=== PATIENT | male | born 1960 | race Caucasian/White ===

== ENCOUNTER 2024-10-17 06:33 | Emergency (ER) | payer MEDICARE, MEDICAID ==
[~2024-10-17] VITALS: Ht 180.3 cm; Wt 100.0 kg
[2024-10-17 06:53] VITALS: O2SAT 100
[2024-10-17] MEDS ORDERED: LIDOCAINE HCL/EPINEPHRINE 1%-EPI 1:100,000 10ML VIAL INFIL ONE (07:15)
[2024-10-17] MEDS: HYDROCODONE/ACETAMINOPHEN 10/325MG TABLET PO ONE (07:58)
[2024-10-17] MEDS: TETANUS, DIPHTHERIA, PERTUSSIS VAC/PF 0.5ML (>10YR OLD) IM ONE (08:00)
[2024-10-17] MEDS: LIDOCAINE HCL/EPINEPHRINE 1%-EPI 1:100,000 10ML VIAL INFIL NR (13:36)
[2024-10-17 14:50] VITALS: BP 145/91; PULSE 87; RESP 16; TEMP 36.6; O2SAT 100
== END 2024-10-17 14:51 | disposition home or self-care (01) ==
LOC: ER 06:33
DX: S81.812A Laceration without foreign body, left lower leg, initial encounter (principal); M25.561 Pain in right knee; I48.91 Unspecified atrial fibrillation; Z79.01 Long term (current) use of anticoagulants; Z86.718 Personal history of other venous thrombosis and embolism; Z86.73 Personal history of transient ischemic attack (TIA), and cerebral infarction without residual deficits; Z88.0 Allergy status to penicillin; Z95.0 Presence of cardiac pacemaker; W22.03XA Walked into furniture, initial encounter; Y93.89 Activity, other specified; Y92.89 Other specified places as the place of occurrence of the external cause; Y99.8 Other external cause status
CPT/HCPCS: 73560; 73590; 90715; 96372; 99285

== ENCOUNTER 2024-10-24 15:33 | Inpatient (IN) | payer BC, MEDICAID ==
[~2024-10-24] VITALS: Ht 177.8 cm; Wt 94.3 kg
[2024-10-24] MEDS ORDERED: ONDANSETRON HCL 4MG/2ML INJ IV STA (16:13)
[2024-10-24] MEDS ORDERED: MORPHINE SULFATE 4 MG/ML INJ (FOR IV/IM USE) IV STA (16:13)
[2024-10-24] MEDS ORDERED: CEFEPIME 2GM IN DEXT 5% 100ML IV ONE (16:15)
[2024-10-24 18:26] LABS: BASOPHILS % 0.4 % (0.0-2.0); DIFFERENTIAL COMMENT 0; EOSINOPHILS % 2.3 % (0.0-5.0); HEMATOCRIT. 22.7 % (42.0-52.0); HEMOGLOBIN. 7.6 g/dL (14.0-18.0); LYMPHOCYTES % 9.7 % (20.0-50.0); MEAN CORPUSCULAR HEMOGLOBIN 33.5 pg (28.0-32.0); MEAN CORPUSCULAR HGB CONC 33.2 g/dL (31.0-37.0); MEAN CORPUSCULAR VOLUME 100.8 fL (80.0-94.0); MEAN PLATELET VOLUME 9.2 fl (7.4-10.4); MONOCYTES % 9.9 % (2.0-8.0); NEUTROPHILS % 77.7 % (40.0-76.0); PLATELET 105 x1000/uL (130-400); RED BLOOD CELL COUNT 2.25 mill/uL (4.7-6.1); RED CELL DISTRIBUTION WIDTH 15.1 % (11.6-14.6); WHITE BLOOD COUNT 4.5 x1000/uL (4.5-11.0)
[2024-10-24 18:38] LABS: CHLORIDE 108 mEq/L (98-107); SODIUM 141 mEq/L (136-145)
[2024-10-24 18:39] LABS: CALCIUM 8.8 mg/dL (8.7-10.4); CARBON DIOXIDE 27 mEq/L (21-32)
[2024-10-24 18:44] LABS: CREATININE 0.6 mg/dL (0.6-1.3); GLUCOSE 85 mg/dL (70-105); TROPONIN I HIGH SENSITIVITY 5 ng/L (3.0-53); UREA NITROGEN BLOOD 11 mg/dL (9-23)
[2024-10-24 18:46] LABS: ALANINE AMINOTRANSFERASE 16 IU/L (10-49); ALBUMIN 3.5 g/dL (3.2-4.8); ASPARTATE AMINOTRANSFERASE 21 IU/L (<34); BILIRUBIN TOTAL 0.5 mg/dL (0.1-1.0); PROTEIN TOTAL 6.3 g/dL (6.0-8.3)
[2024-10-24] MEDS: ONDANSETRON HCL 4MG/2ML INJ IV NR (19:21)
[2024-10-24] MEDS: MORPHINE SULFATE 4 MG/ML INJ (FOR IV/IM USE) IV NR (19:21)
[2024-10-24] MEDS: CEFEPIME 2GM/50ML DUPLEX 50 ML IV NR (19:21)
[2024-10-24] MEDS: VANCOMYCIN 1G PREMIX 200 ML IV SCH (19:22)
[2024-10-24 21:58] LABS: CLARITY URINE CLEAR (CLEAR); COLOR URINE YELLOW (YELLOW); GLUCOSE URINE NEGATIVE (NEGATIVE); KETONES URINE NEGATIVE (NEGATIVE); LEUKOCYTE ESTERASE URINE NEGATIVE (NEGATIVE); NITRITE URINE NEGATIVE (NEGATIVE); OCCULT BLOOD URINE NEGATIVE (NEGATIVE); PH URINE 6.5 (4.5-8.0); PROTEIN URINE NEGATIVE (NEGATIVE); SPECIFIC GRAVITY URINE 1.009 (1.005-1.030); UROBILINOGEN URINE 0.2 E.U./dL (0.2-1.0)
[2024-10-24 22:05] VITALS: BP 120/70; PULSE 77; RESP 20; TEMP 36.4; O2SAT 96
[2024-10-24] MEDS ORDERED: NALOXONE HCL 0.4MG/ML VIAL IV PRN (23:30)
[2024-10-25] VITALS: BP 97/60; PULSE 70; RESP 18; TEMP 36.5; O2SAT 97
[2024-10-25] MEDS: HYDROCODONE/ACETAMINOPHEN 5/325MG TABLET PO PRN (01:59)
[2024-10-25 04:00] VITALS: BP 120/87; PULSE 78; RESP 18; TEMP 36.6; O2SAT 99
[2024-10-25] MEDS: MORPHINE SULFATE 2 MG/ML INJ (NOT FOR IM USE) IV NR (05:52)
[2024-10-25 07:03] LABS: BASOPHILS % 0.4 % (0.0-2.0); DIFFERENTIAL COMMENT 0; EOSINOPHILS % 3.1 % (0.0-5.0); HEMATOCRIT. 22.4 % (42.0-52.0); HEMOGLOBIN. 7.3 g/dL (14.0-18.0); LYMPHOCYTES % 13.2 % (20.0-50.0); MEAN CORPUSCULAR HGB CONC 32.8 g/dL (31.0-37.0); MEAN CORPUSCULAR VOLUME 100.6 fL (80.0-94.0); MEAN PLATELET VOLUME 9.7 fl (7.4-10.4); MONOCYTES % 11.1 % (2.0-8.0); NEUTROPHILS % 72.2 % (40.0-76.0); PLATELET 108 x1000/uL (130-400); RED BLOOD CELL COUNT 2.22 mill/uL (4.7-6.1); RED CELL DISTRIBUTION WIDTH 15.2 % (11.6-14.6); WHITE BLOOD COUNT 3.2 x1000/uL (4.5-11.0)
[2024-10-25] MEDS: IRON SUCROSE COMPLEX 100 MG/5 ML ML IV SCH (09:51)
[2024-10-25] MEDS ORDERED: ONDANSETRON HCL 4MG/2ML INJ IV PRN (11:30)
[2024-10-25] MEDS ORDERED: ACETAMINOPHEN 325MG TABLET PO PRN (11:30)
[2024-10-25] MEDS ORDERED: CEFEPIME 1GM IN DEXT 5% 50ML IV SCH (11:30)
[2024-10-25] MEDS ORDERED: ACET-2708 MT (11:38)
[2024-10-25] MEDS ORDERED: FLUT1BLS9 IH (11:38)
[2024-10-25] MEDS ORDERED: TUSSL MT (11:38)
[2024-10-25] MEDS ORDERED: AMLO5TAB88 MT (11:38)
[2024-10-25] MEDS ORDERED: CODE473S7 MT (11:38)
[2024-10-25] MEDS ORDERED: ALBU90AE INH (11:38)
[2024-10-25] MEDS ORDERED: FAMO40TA7 MT (11:38)
[2024-10-25] MEDS ORDERED: RIVA20TA MT (11:38)
[2024-10-25] MEDS ORDERED: TEMA30CA MT (11:38)
[2024-10-25] MEDS ORDERED: BO1 TP (11:38)
[2024-10-25] MEDS ORDERED: LORA-249 MT (11:38)
[2024-10-25] MEDS ORDERED: MONT-39 MT (11:38)
[2024-10-25] MEDS ORDERED: HYDR-4001 MT (11:38)
[2024-10-25] MEDS ORDERED: AZIT250T12 MT (11:38)
[2024-10-25] MEDS ORDERED: P20 MT (11:38)
[2024-10-25] MEDS ORDERED: FLUT15.844 BOTHNSTRLS (11:41)
[2024-10-25] MEDS ORDERED: KETO-98 LEFTEYE (11:43)
[2024-10-25 12:00] VITALS: BP 120/64; PULSE 82; RESP 16; TEMP 36.2; O2SAT 97
[2024-10-25] MEDS: CEFEPIME 1GM/50ML 50 ML IV SCH (12:45)
[2024-10-25] MEDS: ENOXAPARIN 80MG/0.8ML SYR SUBCUT NR (12:45)
[2024-10-25 16:00] VITALS: BP 140/80; PULSE 77; RESP 18; TEMP 36.4; O2SAT 100
[2024-10-25] MEDS ORDERED: VANCOMYCIN 1.25GM/250ML 250 ML IV SCH (16:00)
[2024-10-25] MEDS: VANCOMYCIN 1.25GM/250ML 250 ML IV SCH (16:46)
[2024-10-25] MEDS ORDERED: TEMAZEPAM MT PRN (18:15)
[2024-10-25] MEDS ORDERED: MEDICATION NOT ON FORMULARY EA (Ketotifen Fumarate 1 DROP) LEFTEYE SCH (18:15)
[2024-10-25] MEDS ORDERED: RIVAROXABAN 20 MG TABLET PO SCH (18:15)
[2024-10-25] MEDS ORDERED: MEDICATION NOT ON FORMULARY EA (Famotidine 1 TAB) MT SCH (18:15)
[2024-10-25] MEDS: AMLODIPINE 5MG TABLET PO SCH (19:20)
[2024-10-25] MEDS: MONTELUKAST SODIUM 10MG TABLET PO SCH (19:20)
[2024-10-25 20:00] VITALS: BP 116/62; PULSE 91; RESP 18; TEMP 36.3; O2SAT 18; O2SAT 96
[2024-10-25 20:55] LABS: INR 1.1; PROTHROMBIN TIME 11.4 sec (9.6-11.0)
[2024-10-25] MEDS: CEFEPIME 2GM/50ML DUPLEX 50 ML IV SCH (23:01)
[2024-10-26] VITALS (7 sets, daily range): BP systolic 137–161; BP diastolic 71–91; PULSE 76–100; RESP 13–20; TEMP 36–36.6; O2SAT 93–100
[2024-10-26] MEDS: ENOXAPARIN 80MG/0.8ML SYR SUBCUT SCH (01:26)
[2024-10-26 08:28] LABS: BASOPHILS % 0.4 % (0.0-2.0); CARBON DIOXIDE 29 mEq/L (21-32); CHLORIDE 107 mEq/L (98-107); HEMATOCRIT. 23.7 % (42.0-52.0); HEMOGLOBIN. 7.9 g/dL (14.0-18.0); LYMPHOCYTES % 10.2 % (20.0-50.0); MEAN CORPUSCULAR HEMOGLOBIN 33.3 pg (28.0-32.0); MEAN CORPUSCULAR HGB CONC 33.3 g/dL (31.0-37.0); MEAN CORPUSCULAR VOLUME 99.9 fL (80.0-94.0); MEAN PLATELET VOLUME 9.7 fl (7.4-10.4); MONOCYTES % 8.1 % (2.0-8.0); NEUTROPHILS % 78.3 % (40.0-76.0); PLATELET 122 x1000/uL (130-400); POTASSIUM 4.5 mEq/L (3.5-5.1); RED BLOOD CELL COUNT 2.37 mill/uL (4.7-6.1); SODIUM 140 mEq/L (136-145); WHITE BLOOD COUNT 4.2 x1000/uL (4.5-11.0)
[2024-10-26 08:33] LABS: CREATININE 0.5 mg/dL (0.6-1.3)
[2024-10-26 08:34] LABS: GLUCOSE 89 mg/dL (70-105); UREA NITROGEN BLOOD 9 mg/dL (9-23)
[2024-10-26] MEDS: PANTOPRAZOLE SODIUM 40 MG/VIAL IV SCH (08:51)
[2024-10-26] MEDS ORDERED: ENOXAPARIN 40MG/0.4ML SYR SUBCUT SCH (09:00)
[2024-10-26] MEDS: NAPHAZOLINE HCL/PHENIR MAL OPHTH SOLN 15ML LEFTEYE SCH (12:11)
[2024-10-26] MEDS: METHADONE HCL 10MG TABLET PO SCH (12:19)
[2024-10-26] MEDS: VANCOMYCIN 1GM PMX (XELLIA) 200 ML IV SCH (20:12)
[2024-10-26] MEDS: ZOLPIDEM TARTRATE 5MG TABLET PO PRN (22:39)
[2024-10-27] VITALS (7 sets, daily range): BP systolic 125–150; BP diastolic 79–91; PULSE 67–90; RESP 18–20; TEMP 35.8–36.4; O2SAT 10–100
[2024-10-27] MEDS: IPRATROPIUM/ALBUTEROL 0.5-3(2.5)MG/3ML NEB HHN PRN (11:25)
[2024-10-27] MEDS: TEMAZEPAM 15MG CAPSULE PO PRN (16:24)
[2024-10-28] VITALS: BP 113/69; PULSE 80; RESP 20; TEMP 36.6; O2SAT 99
[2024-10-28 04:00] VITALS: BP 132/70; PULSE 76; RESP 20; TEMP 36.6; O2SAT 100
[2024-10-28 07:16] LABS: CALCIUM 8.5 mg/dL (8.7-10.4); CARBON DIOXIDE 28 mEq/L (21-32); CHLORIDE 104 mEq/L (98-107); SODIUM 140 mEq/L (136-145)
[2024-10-28 07:22] LABS: CREATININE 0.7 mg/dL (0.6-1.3)
[2024-10-28 07:23] LABS: GLUCOSE 114 mg/dL (70-105); UREA NITROGEN BLOOD 12 mg/dL (9-23)
[2024-10-28 08:00] VITALS: BP 120/71; PULSE 76; RESP 16; TEMP 36.8; O2SAT 98
[2024-10-28] MEDS: FAMOTIDINE 20MG/2ML VIAL IV SCH (09:00)
[2024-10-28] MEDS ORDERED: LEVO-65 MT (09:27)
[2024-10-28] MEDS ORDERED: SULF1TAB48 MT (09:27)
[2024-10-28] MEDS ORDERED: LIDOCAINE HCL 4% (40MG/ML) SOLN 50ML TOP NR (11:30)
[2024-10-28] MEDS ORDERED: LIDOCAINE HCL 1% 20ML VIAL INFIL NR (11:30)
[2024-10-28 12:00] VITALS: BP 135/66; PULSE 72; RESP 18; TEMP 36.2; O2SAT 98
[2024-10-28 16:06] VITALS: BP 143/83; PULSE 72; RESP 18; TEMP 36.4; O2SAT 98
[2024-10-28] MEDS: LEVOFLOXACIN 250MG TABLET PO SCH (18:30)
[2024-10-28] MEDS: SULFAMETHOXAZOLE/TRIMETHOPRIM 800/160MG TABLET PO SCH (18:31)
[2024-10-28 19:00] LABS: DIFFERENTIAL COMMENT 1; HEMATOCRIT. 26.6 % (42.0-52.0); HEMOGLOBIN. 8.7 g/dL (14.0-18.0); MEAN CORPUSCULAR HEMOGLOBIN 33.6 pg (28.0-32.0); MEAN CORPUSCULAR HGB CONC 32.7 g/dL (31.0-37.0); MEAN CORPUSCULAR VOLUME 102.8 fL (80.0-94.0); PLATELET 153 x1000/uL (130-400); RED BLOOD CELL COUNT 2.59 mill/uL (4.7-6.1); RED CELL DISTRIBUTION WIDTH 15.3 % (11.6-14.6); WHITE BLOOD COUNT 3.5 x1000/uL (4.5-11.0)
[2024-10-28 19:04] LABS: CHLORIDE 103 mEq/L (98-107); POTASSIUM 4.6 mEq/L (3.5-5.1); SODIUM 138 mEq/L (136-145)
[2024-10-28 19:06] LABS: CALCIUM 8.9 mg/dL (8.7-10.4); CARBON DIOXIDE 28 mEq/L (21-32)
[2024-10-28 19:11] LABS: CREATININE 0.8 mg/dL (0.6-1.3); GLUCOSE 79 mg/dL (70-105); UREA NITROGEN BLOOD 10 mg/dL (9-23)
[2024-10-28 19:58] LABS: PLATELET ESTIMATE NORMAL
[2024-10-28 20:00] VITALS: BP 140/84; PULSE 68; RESP 19; TEMP 36.4; O2SAT 98
[2024-10-29] VITALS: BP 133/81; PULSE 73; RESP 18; TEMP 36.3; O2SAT 98
[2024-10-29 04:00] VITALS: BP 119/70; PULSE 69; RESP 19; TEMP 36.4; O2SAT 98
[2024-10-29 08:00] VITALS: BP 139/83; PULSE 77; RESP 18; TEMP 36.9; O2SAT 99
[2024-10-29] MEDS ORDERED: LIDOCAINE HCL 1% 10 MG/ML 10ML VIAL ONE (09:36)
[2024-10-29] MEDS: MORPHINE SULFATE 2 MG/ML INJ (NOT FOR IM USE) IV NR (14:53)
[2024-10-29 16:00] VITALS: BP 132/70; PULSE 84; RESP 19; TEMP 35.7; O2SAT 98
[2024-10-30] VITALS: BP 141/65; PULSE 68; RESP 20; TEMP 35.9; O2SAT 96
[2024-10-30 04:00] VITALS: BP 130/80; PULSE 75; RESP 16; TEMP 36.2; O2SAT 96
[2024-10-30] MEDS: HYDROCODONE/ACETAMINOPHEN 5/325MG TABLET PO PRN (04:33)
[2024-10-30 08:00] VITALS: BP 124/70; PULSE 75; RESP 18; TEMP 36.5; O2SAT 100
[2024-10-30] MEDS: METHADONE HCL 5MG TABLET PO SCH (08:53)
[2024-10-30] MEDS: METHADONE HCL 10MG TABLET PO SCH (08:53)
[2024-10-30 12:00] VITALS: BP 126/82; PULSE 106; RESP 20; TEMP 36.4; O2SAT 100
[2024-10-30 12:39] VITALS: BP 126/62; PULSE 106; TEMP 97.5; O2SAT 100
== END 2024-10-30 13:58 | disposition home health service (06) | DRG 571 ==
LOC: ER 15:33 → 7WST 19:57 → EDBEDREQ 20:01 → EDBEDREQTM 20:01 → 7WST 10-25 00:06
PROVIDERS: ADMIT Internal Medicine; ATTEND Internal Medicine
PROC: 0JBP0ZZ Excision of Left Lower Leg Subcutaneous Tissue and Fascia, Open Approach (ICD-10-PCS; principal; 2024-10-29)
PROC: 02HV33Z Insertion of Infusion Device into Superior Vena Cava, Percutaneous Approach (ICD-10-PCS; 2024-10-29)
PROC: B548ZZA Ultrasonography of Superior Vena Cava, Guidance (ICD-10-PCS; 2024-10-29)
PROC: B5181ZA Fluoroscopy of Superior Vena Cava using Low Osmolar Contrast, Guidance (ICD-10-PCS; 2024-10-29)
DX: L03.116 Cellulitis of left lower limb (principal); I48.19 Other persistent atrial fibrillation; L97.829 Non-pressure chronic ulcer of other part of left lower leg with unspecified severity; D64.9 Anemia, unspecified; I50.9 Heart failure, unspecified; S81.001A Unspecified open wound, right knee, initial encounter; M85.80 Other specified disorders of bone density and structure, unspecified site; I11.0 Hypertensive heart disease with heart failure; I25.10 Atherosclerotic heart disease of native coronary artery without angina pectoris; Z20.822 Contact with and (suspected) exposure to COVID-19; G89.29 Other chronic pain; S81.802A Unspecified open wound, left lower leg, initial encounter; F17.210 Nicotine dependence, cigarettes, uncomplicated; D69.6 Thrombocytopenia, unspecified; R29.6 Repeated falls; W19.XXXA Unspecified fall, initial encounter; Z79.01 Long term (current) use of anticoagulants; I25.2 Old myocardial infarction; Z86.718 Personal history of other venous thrombosis and embolism; Z86.73 Personal history of transient ischemic attack (TIA), and cerebral infarction without residual deficits; Z88.0 Allergy status to penicillin; Z91.81 History of falling; Z95.5 Presence of coronary angioplasty implant and graft; Z95.810 Presence of automatic (implantable) cardiac defibrillator; Y93.89 Activity, other specified; Y92.009 Unspecified place in unspecified non-institutional (private) residence as the place of occurrence of the external cause
CPT/HCPCS: 36415; 36573; 71045; 73590; 80048; 80053; 80202; 81003; 83880; 84484; 85025; 87070; 87426; 93005; 93970; 94070; 94640; 94664; 97162; 97166; 99285; A4606; C1725; J0692; J1650; J2003; J2270; J2405; J2470; J3370; J3490

== ENCOUNTER 2025-01-29 13:57 | Inpatient (IN) | payer BC, MEDICAID ==
[~2025-01-29] VITALS: Ht 180.3 cm; Wt 96.6 kg
[~2025-01-29 13:57] MED LIST: ACET-2708 MT; ALBU90AE INH; AMLO5TAB88 PO; BO1 TP; CODE473S7 MT; FAMO40TA7 MT; FLUT15.844 BOTHNSTRLS; FLUT1BLS9 IH; HYDR-4001 MT; KETO-98 BOTHEYE; LEVO-65 MT; LORA-249 MT; MONT-39 PO; RIVA20TA PO; SULF1TAB48 MT; TEMA30CA MT; TUSSL MT
[2025-01-29 14:12] VITALS: O2SAT 99
[2025-01-29 15:15] LABS: CLARITY URINE CLEAR (CLEAR); COLOR URINE YELLOW (YELLOW); GLUCOSE URINE NEGATIVE (NEGATIVE); KETONES URINE NEGATIVE (NEGATIVE); LEUKOCYTE ESTERASE URINE NEGATIVE (NEGATIVE); NITRITE URINE NEGATIVE (NEGATIVE); OCCULT BLOOD URINE NEGATIVE (NEGATIVE); PH URINE 5.5 (4.5-8.0); PROTEIN URINE NEGATIVE (NEGATIVE); SPECIFIC GRAVITY URINE 1.006 (1.005-1.030); UROBILINOGEN URINE 0.2 E.U./dL (0.2-1.0)
[2025-01-29] MEDS ORDERED: METHADONE HCL 10MG TABLET PO SCH (16:45)
[2025-01-29] MEDS: VANCOMYCIN 1G PREMIX 200 ML IV SCH (17:22)
[2025-01-29 17:38] LABS: BASOPHILS % 0.6 % (0.0-2.0); EOSINOPHILS % 3.7 % (0.0-5.0); HEMATOCRIT. 30.7 % (42.0-52.0); HEMOGLOBIN. 10.3 g/dL (14.0-18.0); LYMPHOCYTES % 8.4 % (20.0-50.0); MEAN PLATELET VOLUME 9.1 fl (7.4-10.4); MONOCYTES % 13.6 % (2.0-8.0); NEUTROPHILS % 73.7 % (40.0-76.0); PLATELET 176 x1000/uL (130-400); RED BLOOD CELL COUNT 3.41 mill/uL (4.7-6.1); RED CELL DISTRIBUTION WIDTH 17.6 % (11.6-14.6)
[2025-01-29 17:47] LABS: CREATININE 1.0 mg/dL (0.6-1.3)
[2025-01-29 17:48] LABS: UREA NITROGEN BLOOD 20 mg/dL (9-23)
[2025-01-29 17:49] LABS: TROPONIN I HIGH SENSITIVITY 7 ng/L (3.0-53)
[2025-01-29] MEDS ORDERED: ALBUTEROL (0.083%) 2.5MG/3ML NEB HHN PRN (20:15)
[2025-01-29] MEDS: POTASSIUM CHLORIDE 20MEQ TABLET SR PO SCH (20:59)
[2025-01-29] MEDS ORDERED: NALOXONE HCL 0.4MG/ML VIAL IV PRN (21:00)
[2025-01-29] MEDS: FAMOTIDINE 20MG TABLET PO SCH (21:00)
[2025-01-29] MEDS ORDERED: CEFAZOLIN SODIUM 1000MG/VIAL IV SCH (22:00)
[2025-01-29 22:28] VITALS: BP 141/77; PULSE 74; RESP 20; TEMP 36.4; O2SAT 100
[2025-01-29] MEDS: HYDROCODONE/ACETAMINOPHEN 5/325MG TABLET PO PRN (22:45)
[2025-01-29 22:48] VITALS: BP 141/70; PULSE 74; RESP 18; TEMP 37.252
[2025-01-30] VITALS: BP 108/71; PULSE 72; RESP 19; TEMP 36.3; O2SAT 100
[2025-01-30] MEDS: LORAZEPAM 0.5MG TABLET PO PRN (02:59)
[2025-01-30 04:00] VITALS: BP 138/71; PULSE 73; RESP 18; TEMP 36.4; O2SAT 100
[2025-01-30 07:00] LABS: BASOPHILS % 0.5 % (0.0-2.0); EOSINOPHILS % 4.0 % (0.0-5.0); HEMATOCRIT. 30.3 % (42.0-52.0); HEMOGLOBIN. 10.0 g/dL (14.0-18.0); LYMPHOCYTES % 8.9 % (20.0-50.0); MEAN PLATELET VOLUME 9.4 fl (7.4-10.4); MONOCYTES % 12.8 % (2.0-8.0); NEUTROPHILS % 73.8 % (40.0-76.0); PLATELET 139 x1000/uL (130-400); RED BLOOD CELL COUNT 3.32 mill/uL (4.7-6.1); RED CELL DISTRIBUTION WIDTH 17.8 % (11.6-14.6)
[2025-01-30 07:12] LABS: CREATININE 0.8 mg/dL (0.6-1.3); UREA NITROGEN BLOOD 17 mg/dL (9-23)
[2025-01-30 08:00] VITALS: BP 129/69; PULSE 71; RESP 18; TEMP 36.3; O2SAT 100
[2025-01-30] MEDS ORDERED: ENOXAPARIN 40MG/0.4ML SYR SUBCUT SCH (09:00)
[2025-01-30] MEDS: FUROSEMIDE 20MG TABLET PO SCH (09:01)
[2025-01-30] MEDS: LORATADINE 10MG TABLET PO SCH (09:01)
[2025-01-30] MEDS: METHADONE HCL 10MG TABLET PO SCH (09:04)
[2025-01-30 12:00] VITALS: BP 106/54; PULSE 68; RESP 18; TEMP 36.4; O2SAT 97
[2025-01-30 16:00] VITALS: BP 111/67; PULSE 72; RESP 18; TEMP 36.3; O2SAT 99
[2025-01-30] MEDS ORDERED: ACETAMINOPHEN 325MG TABLET PO PRN (16:45)
[2025-01-30] MEDS ORDERED: ONDANSETRON HCL 4MG/2ML INJ IV PRN (16:45)
[2025-01-30] MEDS: POLYETHYLENE GLYCOL 3350 (17GM) 1 DOSE PACK PO SCH (18:07)
[2025-01-30] MEDS: RIVAROXABAN 20 MG TABLET PO SCH (18:08)
[2025-01-30] MEDS: POTASSIUM CHLORIDE 20MEQ TABLET SR PO SCH (18:08)
[2025-01-30] MEDS: SENNOSIDES 8.6MG TABLET PO SCH (18:09)
[2025-01-30] MEDS: VANCOMYCIN 1.25GM/250ML IV SCH (18:25)
[2025-01-30] MEDS ORDERED: IPRATROPIUM/ALBUTEROL 0.5-3(2.5)MG/3ML NEB HHN PRN (19:30)
[2025-01-30 20:00] VITALS: BP 126/69; PULSE 80; RESP 20; TEMP 36.8; O2SAT 97
[2025-01-30] MEDS ORDERED: MEDICATION NOT ON FORMULARY EA (Famotidine 1 TAB) MT SCH (21:00)
[2025-01-31] VITALS: BP 122/63; PULSE 88; RESP 18; TEMP 36.4; O2SAT 96
[2025-01-31 04:00] VITALS: BP 117/70; PULSE 85; RESP 19; TEMP 36.3; O2SAT 97
[2025-01-31 06:45] LABS: BASOPHILS % 0.7 % (0.0-2.0); EOSINOPHILS % 4.2 % (0.0-5.0); HEMATOCRIT. 29.7 % (42.0-52.0); HEMOGLOBIN. 9.8 g/dL (14.0-18.0); LYMPHOCYTES % 15.7 % (20.0-50.0); MEAN PLATELET VOLUME 9.4 fl (7.4-10.4); MONOCYTES % 12.6 % (2.0-8.0); NEUTROPHILS % 66.8 % (40.0-76.0); PLATELET 121 x1000/uL (130-400); RED BLOOD CELL COUNT 3.27 mill/uL (4.7-6.1); RED CELL DISTRIBUTION WIDTH 18.1 % (11.6-14.6)
[2025-01-31 06:45] LABS: CREATININE 0.7 mg/dL (0.6-1.3)
[2025-01-31 06:46] LABS: UREA NITROGEN BLOOD 15 mg/dL (9-23)
[2025-01-31 08:00] VITALS: BP 134/77; PULSE 77; RESP 20; TEMP 35.9; O2SAT 97
[2025-01-31] MEDS: FUROSEMIDE 40MG/4ML VIAL IVP SCH (08:23)
[2025-01-31] MEDS: AMLODIPINE 5MG TABLET PO SCH (08:35)
[2025-01-31] MEDS ORDERED: POLYETHYLENE GLYCOL 3350 (17GM) 1 DOSE PACK PO SCH (09:00)
[2025-01-31] MEDS ORDERED: PANTOPRAZOLE SODIUM 40 MG/VIAL IV SCH (09:00)
[2025-01-31] MEDS ORDERED: SENNOSIDES 8.6MG TABLET PO SCH (09:00)
[2025-01-31] MEDS ORDERED: RIVAROXABAN 20 MG TABLET PO SCH (09:00)
[2025-01-31 12:00] VITALS: BP 149/80; PULSE 82; RESP 18; TEMP 36.6; O2SAT 98
[2025-01-31] MEDS ORDERED: TRAM50TA3 PO (12:55)
[2025-01-31 16:00] VITALS: BP 145/70; PULSE 89; RESP 17; TEMP 36.3; O2SAT 97
[2025-01-31] MEDS: TRAMADOL 50MG TABLET PO PRN (17:49)
[2025-01-31 20:00] VITALS: BP 125/56; PULSE 85; RESP 20; TEMP 36.3; O2SAT 96
[2025-02-01] VITALS: BP 118/74; PULSE 70; RESP 20; TEMP 36.1; O2SAT 97
[2025-02-01 04:00] VITALS: BP 125/84; PULSE 74; RESP 20; TEMP 36.3; O2SAT 98
[2025-02-01] MEDS: ACETAMINOPHEN 500MG TABLET PO PRN (05:22)
[2025-02-01 06:48] LABS: CREATININE 0.7 mg/dL (0.6-1.3); UREA NITROGEN BLOOD 15 mg/dL (9-23)
[2025-02-01 07:06] LABS: BASOPHILS % 0.8 % (0.0-2.0); EOSINOPHILS % 4.5 % (0.0-5.0); HEMATOCRIT. 31.9 % (42.0-52.0); HEMOGLOBIN. 10.5 g/dL (14.0-18.0); LYMPHOCYTES % 16.6 % (20.0-50.0); MEAN PLATELET VOLUME 9.6 fl (7.4-10.4); MONOCYTES % 12.9 % (2.0-8.0); NEUTROPHILS % 65.2 % (40.0-76.0); PLATELET 142 x1000/uL (130-400); RED BLOOD CELL COUNT 3.51 mill/uL (4.7-6.1); RED CELL DISTRIBUTION WIDTH 18.0 % (11.6-14.6)
[2025-02-01 08:00] VITALS: BP 158/79; PULSE 79; RESP 19; TEMP 36.2; O2SAT 98
[2025-02-01] MEDS: SILVER SULFADIAZINE 1% CREAM 50GM TOP SCH (10:30)
[2025-02-01 12:00] VITALS: BP 144/62; PULSE 71; RESP 20; TEMP 36.7; O2SAT 98
[2025-02-01 16:00] VITALS: BP 152/69; PULSE 68; RESP 19; TEMP 36.2; O2SAT 98
[2025-02-01] MEDS ORDERED: FURO-151 MT (16:24)
[2025-02-01] MEDS ORDERED: SULF1TAB48 MT (16:24)
[2025-02-01] MEDS ORDERED: LEVO-65 MT (16:24)
[2025-02-01] MEDS ORDERED: FLUT1BLS13 INH (17:30)
[2025-02-01] MEDS ORDERED: ZOLP10TA2 PO (17:47)
[2025-02-01] MEDS ORDERED: FURO40TA5 PO (18:01)
[2025-02-01 20:00] VITALS: BP 122/82; PULSE 76; RESP 20; TEMP 37; O2SAT 98
[2025-02-02] VITALS: BP 122/63; PULSE 76; RESP 20; TEMP 36.7; O2SAT 98
[2025-02-02 04:00] VITALS: BP 133/65; PULSE 55; RESP 18; TEMP 36.9; O2SAT 97
[2025-02-02 15:38] VITALS: BP 139/82; PULSE 74; RESP 20
== END 2025-02-02 18:26 | disposition home health service (06) | DRG 602 ==
LOC: ER 13:57 → 8WST 16:26 → ENRESERV 16:50
PROVIDERS: ADMIT Internal Medicine; ATTEND Internal Medicine
DX: L03.116 Cellulitis of left lower limb (principal); I50.23 Acute on chronic systolic (congestive) heart failure; L97.312 Non-pressure chronic ulcer of right ankle with fat layer exposed; I48.19 Other persistent atrial fibrillation; I11.0 Hypertensive heart disease with heart failure; E87.6 Hypokalemia; Z79.01 Long term (current) use of anticoagulants; I83.009 Varicose veins of unspecified lower extremity with ulcer of unspecified site; D72.819 Decreased white blood cell count, unspecified; R29.6 Repeated falls; G89.29 Other chronic pain; S81.802A Unspecified open wound, left lower leg, initial encounter; S81.801A Unspecified open wound, right lower leg, initial encounter; D64.9 Anemia, unspecified; F17.210 Nicotine dependence, cigarettes, uncomplicated; I25.2 Old myocardial infarction; Z86.718 Personal history of other venous thrombosis and embolism; Z22.322 Carrier or suspected carrier of Methicillin resistant Staphylococcus aureus; Z86.73 Personal history of transient ischemic attack (TIA), and cerebral infarction without residual deficits; Z88.0 Allergy status to penicillin; Z91.81 History of falling; Z95.810 Presence of automatic (implantable) cardiac defibrillator; Z98.61 Coronary angioplasty status; X58.XXXA Exposure to other specified factors, initial encounter; Y93.89 Activity, other specified; Y92.89 Other specified places as the place of occurrence of the external cause; Y99.8 Other external cause status
CPT/HCPCS: 36415; 71045; 73590; 80048; 80202; 81003; 83036; 83605; 83880; 84145; 84484; 85025; 93005; 93970; 97162; 99285; A4606; A6449; J0690; J1938; J3373